=== PATIENT | female | born 1970 | race Caucasian/White ===

== ENCOUNTER 2016-11-19 23:33 | Emergency (ER) | payer SELFPAY ==
[~2016-11-19] VITALS: Ht 152.4 cm; Wt 69.0 kg
[2016-11-20 00:21] VITALS: Ht 152.4 cm; Wt 69.0 kg
[2016-11-20 02:48] LABS: ADD SCAN DIFF NO
[2016-11-20 02:50] LABS: BASOPHILS % 0.4 % (0.0-2.0); EOSINOPHILS # 0.4 10^3/ul (0.0-0.5); EOSINOPHILS % 4.1 % (0.0-7.0); HEMATOCRIT 43.5 % (37.0-47.0); HEMOGLOBIN 13.9 g/dl (12.0-16.0); LYMPHOCYTES % 40.1 % (15.0-51.0); MEAN CORPUSCULAR HEMOGLOBIN 27.5 pg (29.0-33.0); MEAN PLATELET VOLUME 10.1 fl (7.4-10.4); MONOCYTE # 0.8 10^3/ul (0.3-0.9); MONOCYTES % 8.1 % (0.0-11.0); NEUTROPHIL # 4.7 10^3/ul (1.6-7.5); PLATELET COUNT 345 10^3/UL (140-415); RED BLOOD COUNT 5.06 10^6/ul (4.20-5.40); RED CELL DISTRIBUTION WIDTH 13.2 % (11.5-14.5); WHITE BLOOD COUNT 10.1 10^3/ul (4.8-10.8)
[2016-11-20 02:54] LABS: ADD UMIC NO; UR BILIRUBIN (Dip) NEGATIVE (NEGATIVE); UR BLOOD (Dip) NEGATIVE (NEGATIVE); UR CLARITY CLEAR (CLEAR); UR COLOR LT. YELLOW (YELLOW); UR GLUCOSE (Dip) NEGATIVE (NEGATIVE); UR KETONES (Dip) NEGATIVE (NEGATIVE); UR LEUKOCYTE ESTERASE (Dip) NEGATIVE (NEGATIVE); UR NITRITE (Dip) NEGATIVE (NEGATIVE); UR TOTAL PROTEIN (Dip) NEGATIVE (NEGATIVE); UR UROBILINOGEN (Dip) 0.2 E.U./dL (0.1-1.0)
[2016-11-20 03:09] LABS: ALBUMIN 4.8 g/dl (3.3-4.9); ALBUMIN/GLOBULIN RATIO 1.5; BILIRUBIN,INDIRECT 0.8 mg/dl (0-1.1); BILIRUBIN,TOTAL 0.8 mg/dl (0.2-1.3); CALCIUM 9.6 mg/dl (8.4-10.2); CREATININE 0.73 mg/dl (0.44-1.00); POTASSIUM 4.4 mmol/L (3.5-5.1)
[2016-11-20] MEDS ORDERED: IBUP-1542 PO (04:16)
[2016-11-20 04:23] VITALS: BP 138/79; PULSE 77; RESP 16; TEMP 98.1
--- NOTE | 2016-11-20 04:23 | RADRPT ---
PROCEDURE: US pelvis complete and transvaginal CLINICAL INDICATION: Pelvic pain TECHNIQUE: Louise scale and color Doppler imaging of the pelvis was performed. Endovaginal scanning was performed for more detailed evaluation of the endometrium. The images were reviewed on a PACS workstation. COMPARISON: None. FINDINGS: The uterus measures 7.9 x 4.9 x 5.6 centimeters. The right ovary was not seen and the left ovary me asures 3.1 x 2 x 2.1 centimeters. The endometrial stripe measures 9 millimeters in thickness and is unremarkable in appearance. No fibroids are seen. Left ovary contains a 2 cm cyst. Color and arter ial pulsed wave flow of the left ovary was documented. No free fluid is seen. IMPRESSION: 2 cm left ovarian cyst. Nonvisualization of the right ovary. RPTAT: [facility] Physician Tabitha Date Time Electronically viewed and signed by Physician Tabitha on 11/20/2016 04:23 YVES/
--- NOTE | 2016-11-20 04:23 | ERA ---
ER Documentation Chief Complaint Date/Time DATE: 11/20/16 TIME: 04:17 Chief Complaint pelvic pain,denies dysuria/diarrhea/constipation HPI This is a 46-year-old female who is presenting for 3 days of stomach pain. Patient denies any alleviating or worsening factors, dysuria, fever, constipation, diarrhea, vomiting, radiation of pain. Patient has had symptoms like this in the past with spontaneous resolution. Patient has no other complaints at this time. Patient does not take any medication to relieve the current symptoms. ROS All systems reviewed and are negative except as per history of present illness. Medications Home Meds Active Scripts Ibuprofen* (Motrin*) 600 Mg Tab, 600 MG PO Q6H Y for PAIN AND OR ELEVATED TEMP, #30 TAB Prov:LAWRENCE GREEN PA-C 11/20/16 Allergies Allergies: Coded Allergies: acetaminophen (Verified Allergy, Unknown, rash, 11/20/16) PMhx/Soc Medical and Surgical Hx: pt denies Medical Hx, pt denies Surgical Hx Hx Alcohol Use: No Hx Substance Use: No Hx Tobacco Use: No Smoking Status: Never smoker Physical Exam Vitals Vital Signs Date Time Temp Pulse Resp B/P Pulse Ox O2 Delivery O2 Flow Rate FiO2 11/20/16 00:21 99.0 80 18 148/75 99 Physical Exam Const: [] Head: Atraumatic Eyes: Normal Conjunctiva ENT: Normal External Ears, Nose and Mouth. Neck: Full range of motion..~ No meningismus. Resp: Clear to auscultation bilaterally Cardio: Regular rate and rhythm, no murmurs Abd: Soft, non tender, non distended. Normal bowel sounds Skin: No petechiae or rashes Back: No midline or flank tenderness Ext: No cyanosis, or edema Neur: Awake and alert Psych: Normal Mood and Affect Result Diagram: 11/20/16 0237 11/20/16 0237 Results 24 hrs Laboratory Tests Test 11/20/16 02:37 White Blood Count 10.110^3/ul Red Blood Count 5.0610^6/ul Hemoglobin 13.9g/dl Hematocrit 43.5% Mean Corpuscular Volume 86.0fl Mean Corpuscular Hemoglobin 27.5pg Mean Corpuscular Hemoglobin Concent 32.0g/dl Red Cell Distribution Width 13.2% Platelet Count 09346^3/UL Mean Platelet Volume 10.1fl Neutrophils % 47.0% Lymphocytes % 40.1% Monocytes % 8.1% Eosinophils % 4.1% Basophils % 0.4% Nucleated Red Blood Cells % 0.0/100WBC Neutrophils # 4.710^3/ul Lymphocytes # 4.010^3/ul Monocytes # 0.810^3/ul Eosinophils # 0.410^3/ul Basophils # 0.010^3/ul Nucleated Red Blood Cells # 0.010^3/ul Urine Color LT. YELLOW Urine Clarity CLEAR Urine pH 7.0 Urine Specific Hubbard 1.010 Urine Ketones NEGATIVE Urine Nitrite NEGATIVE Urine Bilirubin NEGATIVE Urine Urobilinogen 0.2 E.U./dL Urine Leukocyte Esterase NEGATIVE Urine Hemoglobin NEGATIVE Urine Glucose NEGATIVE% Urine Total Protein NEGATIVE Sodium Level 144mmol/L Potassium Level 4.4mmol/L Chloride Level 106mmol/L Carbon Dioxide Level 29mmol/L Anion Gap 13 Blood Urea Nitrogen 10mg/dl Creatinine 0.73mg/dl Glucose Level 101mg/dl Calcium Level 9.6mg/dl Total Bilirubin 0.8mg/dl Direct Bilirubin 0.00mg/dl Indirect Bilirubin 0.8mg/dl Aspartate Amino Transf (AST/SGOT) 21IU/L Alanine Aminotransferase (ALT/SGPT) 30IU/L Alkaline Phosphatase 129IU/L Total Protein 8.0g/dl Albumin 4.8g/dl Globulin 3.20g/dl Albumin/Globulin Ratio 1.50 Lipase 102U/L Procedures/MDM 46-year-old female being worked up and evaluated for lower abdominal pain. Patient's lab work was largely unremarkable. Physical exam was unremarkable except for mild to moderate tenderness in the lower abdomen near the left lower quadrant. Patient was given ibuprofen in the ED for symptomatic treatment with moderate relief. The workup included labs and an ultrasound. The ultrasound results were as follows: 2 cm cyst on the left ovary. Current most likely diagnosis is pain secondary to ovarian cyst. This treatment plan will thus include symptomatic treatment with ibuprofen. Patient has been advised for outpatient follow-up in the next 1-3 days for further more complete evaluation of chronic conditions as well as possible referral to specialist. At this time I do not suspect ovarian torsion, tubo-ovarian abscess, mechanical obstruction, ectopic , hernia, appendicitis, intestinal ischemia, PID, AAA, diverticulitis or cystitis. On repeat exam, the abdomen has slightly improved with decreased tenderness in the lower abdomen. The patient is well appearing, and tolerates PO. I have spoke with the patient regarding their condition and future management. They have verbally responded that they understand their status and treatment plan. The patients vitals are stable, and their current condition is appropriate for discharge. The patient will be given discharge instructions with return precautions. Departure Diagnosis: Primary Impression: Ovarian cyst Qualified Code: N83.202 - Cyst of left ovary Condition: Stable Patient Instructions: Ovarian Cyst Additional Instructions: Follow up with your PCP within the next 1-3 days for a more thorough evaluation and a possible referral to a specialist. Return the the emergency department immediately if symptoms worsen or change. If you have any questions regarding medications, ask your pharmacist or us before you leave. If any adverse reactions occur while taking your medications, discontinue the treatment and return to the emergency department immediately. Take your medications as directed, and complete the entire course of treatment. LAWRENCE GREEN PA-C Nov 20, 2016 04:22
== END 2016-11-20 04:23 | disposition home or self-care (01) ==
LOC: FTE 23:33
DX: N83.202 Unspecified ovarian cyst, left side (principal)
CPT/HCPCS: 36415; 76830; 76856; 80053; 81003; 83690; 85025